=== PATIENT | female | born 1995 | race Caucasian/White ===

== ENCOUNTER 2021-11-29 13:44 | Emergency (ER) | payer MEDICAID ==
[~2021-11-29] VITALS: Ht 162.5 cm; Wt 77.1 kg
[2021-11-29 15:17] LABS: BASO % 0.4 % (0.0-1.0); EOS # 0.2 10*3/uL (0.0-0.4); EOS % 1.6 % (1.0-4.0); HEMATOCRIT 41.4 % (37.0-47.0); LYMPH # 2.4 10*3/uL (1.3-4.4); LYMPH % 22.6 % (27.0-41.0); MEAN CELL VOLUME 86.1 fl (81.0-99.0); MEAN CORPUSCULAR HGB 29.7 pg (27.0-31.0); MEAN CORPUSCULAR HGB CONC 34.5 g/dl (33.0-37.0); MEAN PLATELET VOLUME 9.6 fl (9.6-12.3); MONO # 0.6 10*3/uL (0.1-1.0); NEUT # 7.3 10*3/uL (2.3-7.9); PLATELET COUNT AUTOMATED 333 10*3/uL (130-400); RED BLOOD COUNT 4.81 10*6/uL (4.10-5.10); WHITE BLOOD COUNT 10.5 10*3/uL (4.8-10.8)
[2021-11-29 15:34] LABS: ALKALINE PHOSPHATASE 64 U/L (45-117); BUN 16 mg/dl (7-24); CHLORIDE 110 mmol/L (98-107); LIPASE 87 U/L (73-393); POTASSIUM 3.9 mmol/L (3.5-5.1); SGOT/AST 8 IU/L (3-35); SGPT/ALT 9 U/L (12-78); SODIUM 140 mmol/L (136-145)
[2021-11-29 15:40] LABS: BILIRUBIN Negative (Negative); BLOOD Negative (Negative); CLARITY Clear (Clear); COLOR Yellow (Yellow); GLUCOSE Negative (Negative); KETONE Trace (Negative); LEUKO ESTERASE Negative (Negative); NITRITE Negative (Negative); SPECIFIC GRAVITY 1.025 (1.001-1.030); UROBILINOGEN 0.2 E.U./dl (0.0-1.0)
[2021-11-29 15:46] LABS: BETA-HCG, QUANT < 1.0 mIU/mL (1-3)
[2021-11-29 15:56] LABS: BACTERIA TRACE; WBC 0-2 wbc/hpf (0-5)
[2021-11-29] MEDS ORDERED: Motrin,Rufen800 MG PO (16:49)
== END 2021-11-29 16:56 | disposition home or self-care (01) ==
LOC: ED 13:44
PROVIDERS: Emergency Medicine
DX: N83.202 Unspecified ovarian cyst, left side (principal); Z88.0 Allergy status to penicillin

== ENCOUNTER 2022-04-16 11:40 | Emergency (ER) | payer MEDICAID ==
[~2022-04-16] VITALS: Ht 162.5 cm; Wt 68.0 kg
[~2022-04-16 11:40] MED LIST: Motrin,Rufen800 MG PO
[2022-04-16 12:15] LABS: BILIRUBIN Negative (Negative); BLOOD Negative (Negative); CLARITY Clear (Clear); COLOR Yellow (Yellow); GLUCOSE Negative (Negative); KETONE Trace (Negative); LEUKO ESTERASE 2+ (Negative); NITRITE Positive (Negative); UROBILINOGEN 0.2 E.U./dl (0.0-1.0)
[2022-04-16 12:26] LABS: BASO % 0.3 % (0.0-1.0); EOS # 0.1 10*3/uL (0.0-0.4); EOS % 0.7 % (1.0-4.0); HEMATOCRIT 34.6 % (37.0-47.0); LYMPH # 1.6 10*3/uL (1.3-4.4); LYMPH % 16.9 % (27.0-41.0); MEAN CELL VOLUME 86.3 fl (81.0-99.0); MEAN CORPUSCULAR HGB 29.7 pg (27.0-31.0); MEAN CORPUSCULAR HGB CONC 34.4 g/dl (33.0-37.0); MEAN PLATELET VOLUME 9.5 fl (9.6-12.3); MONO # 0.7 10*3/uL (0.1-1.0); MONO % 7.3 % (3.0-9.0); NEUT # 6.9 10*3/uL (2.3-7.9); NEUT % 74.6 % (47.0-73.0); PLATELET COUNT AUTOMATED 308 10*3/uL (130-400); RED BLOOD COUNT 4.01 10*6/uL (4.10-5.10); RED CELL DISTRI WIDTH 11.9 % (0-14.5); WHITE BLOOD COUNT 9.2 10*3/uL (4.8-10.8)
[2022-04-16 12:33] LABS: BACTERIA 4+; WBC TNTC wbc/hpf (0-5)
[2022-04-16 12:41] LABS: ALKALINE PHOSPHATASE 70 U/L (45-117); BUN 13 mg/dl (7-24); CHLORIDE 108 mmol/L (98-107); CREATININE 0.92 mg/dL (0.55-1.02); LIPASE 123 U/L (73-393); POTASSIUM 3.5 mmol/L (3.5-5.1); SGOT/AST 13 IU/L (3-35); SGPT/ALT 15 U/L (12-78); SODIUM 140 mmol/L (136-145); TOTAL PROTEIN 6.9 gm/dL (6.4-8.2)
[2022-04-16] MEDS ORDERED: CIPRO500 MG PO (12:55)
== END 2022-04-16 13:01 | disposition home or self-care (01) ==
LOC: ED 11:40
PROVIDERS: Emergency Medicine
DX: N12 Tubulo-interstitial nephritis, not specified as acute or chronic (principal); Z88.0 Allergy status to penicillin; Z87.42 Personal history of other diseases of the female genital tract